=== PATIENT | female | born 1955 | race African-American/Black ===

== ENCOUNTER 2019-09-19 23:41 | Inpatient (IN) | payer OTHER ==
[~2019-09-19] VITALS: Ht 170.2 cm; Wt 93.9 kg
[~2019-09-19 23:41] MED LIST: CIPRO500 MG PO; CIPROFLOXACIN500 M1 PO; FLAGYL500 MG PO; HYDROCODONE-AP1 EAC6 PO; NORCO 5-325 TA1 EACH PO; OMEGA-31000 M1 PO; UNICOMPLEX M TA1 TA1 PO
[2019-09-19 23:45] VITALS: BP 93/66
[2019-09-19] MEDS ORDERED: LIPITOR10 MG PO (23:50)
[2019-09-19] MEDS ORDERED: IRBESARTAN150 MG PO (23:51)
[2019-09-20 00:16] LABS: ABSOLUTE NEUTROPHILS 10.8 thou/uL (1.4-8.2); BASOPHILS 0.4 % (0.0-2.0); EOSINOPHILS 0.5 % (0.0-3.0); HEMATOCRIT 42.4 % (37.0-47.0); HEMOGLOBIN 13.8 gm/dL (12.0-15.0); LYMPHOCYTES 11.5 % (24.0-44.0); MCHC 32.7 g/dL (28.0-37.0); MCV 88.9 fL (80.0-100.0); MONOCYTES 4.2 % (1.0-8.0); PLATELET COUNT 221 thou/uL (150-400); POLYS 83.4 % (36.0-66.0); RBC 4.77 mil/uL (4.20-5.00); RDW 12.9 % (10.5-14.5); WBC 12.9 thou/uL (4.0-11.0)
[2019-09-20 00:34] LABS: CALCIUM 8.9 mg/dL (8.5-10.1); CREATININE 1.2 mg/dL (0.6-1.0)
[2019-09-20 01:55] LABS: LARGE PLATELETS RARE
[2019-09-20 03:06] VITALS: BP 118/67
--- NOTE | 2019-09-20 03:12 | NUR ---
REPORT GIVEN TO NURSE ON 3RD FLOOR
[2019-09-20 03:21] VITALS: BP 107/63
[2019-09-20 03:35] VITALS: BP 109/67
--- NOTE | 2019-09-20 03:57 | NUR ---
ADMISSION NOTE: ALERT AND ORIENTED, PLEASANT. COMPLAINS OF RESP SYMPTOMS FOR THE PAST 4 -5 DAYS. NO FLU SHOT THIS SEASON, BUT IS WILLING TO TAKE ONE. ORIENTED TO ROOM AND SURROUNDINGS. CARE PLAN STARTED
[2019-09-20 07:30] VITALS: BP 105/69
[2019-09-20 15:15] VITALS: BP 123/70
--- NOTE | 2019-09-20 15:32 | NUR ---
INITIAL ASSESSMENT: JANNA reviewed chart and spoke with nursing and attending physician. Pt was admitted from home due to sepsis/community acquired pneumonia. Pt is on IV abx. Pt does not have health insurance. [employer] to see pt to assist with financial assistance application/Medicaid application. JANNA met with pt at bedside. Introduced role of SW. Pt is alert/orientated x 4. Pt reports she lives at home with her . Prior to admission, pt was independent with ADLs. Pt does not use any DME. No hx of services or post-acute placement. Pt's PCP is Dr. Bud De Los Santos. Pt voiced concern about costs of medications at time of discharge. JANNA provided pt with info for prescription assistance programs. Should pt d/c over the weekend and is not able to fill scripts due to financial reasons, pt to contact JANNA on Monday to arrange for meds to be filled in [facility]. Pt's family will be able to provide transportation home. JANNA is following to assist as needed with discharge planning.
--- NOTE | 2019-09-20 17:09 | NUR ---
Assumed care approx. 0700 this AM. IV abx started today. Tylenol given for fever of 100.4 this evening while also fighting intermittent headaches. Pt remains on room air. No acute changes. Pt slowly progressing toward plan of care goals.
[2019-09-20 19:45] VITALS: BP 97/63
[2019-09-21 04:20] VITALS: BP 113/68
--- NOTE | 2019-09-21 06:22 | NUR ---
spoke with provider adam regarding her blood culture results. gram positive cocci. no new orders recieved. denies pain. stated that she is feeling much better. continues to have a productive cough.
[2019-09-21 07:30] VITALS: BP 114/63
--- NOTE | 2019-09-21 08:43 | NUR ---
STATES SHE HAS NOT HAD ANY MORE FEVERS THROUGH THE NIGHT. HAS A LIGHT COUGH THAT IS NON PRODUCTIVE. SHE DENIES ANY OTHER COMPLAINTS. ALERT ORIENTED X4. WILL CONT WITH PLAN OF CARE.
[2019-09-21 15:15] VITALS: BP 117/83
--- NOTE | 2019-09-21 18:48 | NUR ---
PATIENT HAS RESTED IN ROOM THROUGH THE DAY. SHE STATES SHE FEELS BETTER. DISCHAR PLANCED FOR TOMORROW. UP AD JARED. WILL CONT WITN PLAN OF CARE.
[2019-09-21 19:48] VITALS: BP 115/71
[2019-09-21 23:31] VITALS: BP 115/69
--- NOTE | 2019-09-22 02:51 | NUR ---
Patient rested comfortably NOC and remained stable. Nursing will continue to monitor.
[2019-09-22 04:02] VITALS: BP 121/72
[2019-09-22 06:58] VITALS: BP 112/68
[2019-09-22 15:42] VITALS: BP 120/74
[2019-09-22 19:18] VITALS: BP 127/84
--- NOTE | 2019-09-22 19:29 | NUR ---
PATIENT WAS TRANSFERRED FROM 3W. AXOX4. AD JARED. INTRODUECED TO ROOM. VSS. CARE TRANSFERRED TO INCOMING RN AT THIS TIME.
[2019-09-23 04:43] LABS: CALCIUM 9.4 mg/dL (8.5-10.1); CREATININE 0.9 mg/dL (0.6-1.0); POTASSIUM 4.2 mmol/L (3.5-5.1)
[2019-09-23 04:56] LABS: HEMATOCRIT 37.2 % (37.0-47.0); HEMOGLOBIN 12.2 gm/dL (12.0-15.0); MCH 29.1 pg (26.0-34.0); MCHC 32.7 g/dL (28.0-37.0); RBC 4.18 mil/uL (4.20-5.00); RDW 12.9 % (10.5-14.5); WBC 14.4 thou/uL (4.0-11.0)
[2019-09-23 07:22] VITALS: BP 131/78
--- NOTE | 2019-09-23 08:24 | NUR ---
progress a/o x4 up ad ravi denies pain assessment wnl, denies pain skin clean dry warm intact. pt to discharge home today.
[2019-09-23] MEDS ORDERED: MUCINEX600 MG PO (12:32)
[2019-09-23] MEDS ORDERED: CEFUROXIME500 MG PO (12:32)
[2019-09-23 12:55] VITALS: BP 131/78
--- NOTE | 2019-09-23 13:24 | NUR ---
PT A&OX4, VSS, DENIES PAIN. PATIENT HAS NON PRODUCTIVE COUGH, LUNGS CLEAR, NO SIGNS OF DISTRESS. PATIENT DISCHARGED HOME, IV REMOVED, ALL BELONGINGS WITH PATIENT.
== END 2019-09-23 14:11 | disposition home or self-care (01) | DRG 871 ==
LOC: ER 23:41 → 4W 09-20 02:11 → EROBS 09-20 02:11 → 3W 09-20 03:22 → 4W 09-22 15:18
PROVIDERS: Emergency Medicine; ADMIT Hospitalist
DX: A41.9 Sepsis, unspecified organism (principal); J18.9 Pneumonia, unspecified organism; I10 Essential (primary) hypertension; Z77.22 Contact with and (suspected) exposure to environmental tobacco smoke (acute) (chronic); E78.5 Hyperlipidemia, unspecified; Z79.899 Other long term (current) drug therapy; Z23 Encounter for immunization; Z82.49 Family history of ischemic heart disease and other diseases of the circulatory system
CPT/HCPCS: 10047; 10879

== ENCOUNTER 2021-02-28 13:19 | Emergency (ER) | payer OTHER ==
[~2021-02-28] VITALS: Ht 170.2 cm; Wt 93.9 kg
[~2021-02-28 13:19] MED LIST changes: +CEFUROXIME500 MG PO; +IRBESARTAN150 MG PO; +LIPITOR10 MG PO; +MUCINEX600 MG PO
[2021-02-28 13:30] VITALS: BP 150/93
[2021-02-28] MEDS ORDERED: PREDNISOLONE ACE5 ML LT. EYE (14:46)
== END 2021-02-28 15:00 | disposition home or self-care (01) ==
LOC: ER 13:19
DX: H15.102 Unspecified episcleritis, left eye (principal); I10 Essential (primary) hypertension